=== PATIENT | female | born 1980 | race Caucasian/White ===

== ENCOUNTER 2024-04-12 14:58 | Emergency (ER) | payer OTHER ==
[~2024-04-12] VITALS: Ht 165.1 cm; Wt 70.3 kg
[2024-04-12 15:05] VITALS: BP 183/109; PULSE 98; RESP 15; TEMP 98.8; O2SAT 99
[2024-04-12] MEDS: KETOROLAC 60 MG/2 ML VIAL IM ONE (15:35)
[2024-04-12] MEDS: ENALAPRIL 10 MG TAB PO ONE (15:43)
[2024-04-12] MEDS ORDERED: IBUP-2213 PO (15:54)
[2024-04-12] MEDS: IBUPROFEN 600 MG TAB PO ONE (16:46)
[2024-04-12 17:24] VITALS: BP 159/92; PULSE 71; RESP 16; TEMP 98; O2SAT 99
== END 2024-04-12 17:25 | disposition home or self-care (01) ==
LOC: MED 14:58
DX: I10 Essential (primary) hypertension (principal); R51.9 Headache, unspecified; R42 Dizziness and giddiness; Z98.890 Other specified postprocedural states; Z79.899 Other long term (current) drug therapy
CPT/HCPCS: 99283; J1885